=== PATIENT | male | born 2005 | race Caucasian/White ===

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

== ENCOUNTER 2024-04-20 15:42 | Emergency (ER) | payer OTHER, SELFPAY ==
[2024-04-20 15:43] VITALS: BP 118/70; PULSE 57; RESP 14; TEMP 37.2; O2SAT 99
--- NOTE | 2024-04-20 16:00 | DI.RAD_ITS ---
Exam(s) XR HAND RT COMPLETE EXAM: XR HAND RT COMPLETE CLINICAL HISTORY: Right Thumb pain. TECHNIQUE: 2D digital imaging was performed. Three views. COMPARISON: No exams were available for comparison FINDINGS: BONES: No definite acute fracture is present. No bony destructive lesion is seen. JOINTS: Posterior dislocation at the 1st metacarpophalangeal joint. No definite fracture although th ere are 3 associated sesamoid bones. The 5th finger is held in flexion. SOFT TISSUE: Normal. IMPRESSION: Posterior dislocation at the 1st metacarpophalangeal joint. DATA REPOSITORY: RADIATION DOSE DELIVERED:
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
[2024-04-20] MEDS: oxyCODONE 5 mg/Acetaminophen 325 mg TAB 1 TAB PO (16:14)
[2024-04-20] MEDS: Lidocaine 1% Multi-Dose W/EPI 1/100,000 10 ML VIAL IJ (17:20)
--- NOTE | 2024-04-20 17:30 | DI.RAD_ITS ---
Exam(s) XR THUMB RT EXAM: XR THUMB RT CLINICAL HISTORY: Post reduction. TECHNIQUE: 2D digital imaging was performed. Three views. COMPARISON: CR XR HAND RT COMPLETE from 04/20/2024 FINDINGS: BONES: No acute fracture is visible. No bony destructive lesion is seen. JOINTS: Reduction of the previously noted dislocation at the 1st metacarpophalangeal joint. Adjacent sesamoid bones. SOFT TISSUE: Normal. IMPRESSION: Satisfactory reduction of previously noted dislocation at the 1st metacarpophalangeal joint. DATA REPOSITORY: RADIATION DOSE DELIVERED:
== END 2024-04-20 18:28 | disposition home or self-care (01) ==
PROVIDERS: Emergency Provider Registered Nurse Emergency
DX: S63.104A Unspecified dislocation of right thumb, initial encounter (principal); V18.0XXA Pedal cycle driver injured in noncollision transport accident in nontraffic accident, initial encounter
CPT/HCPCS: 26775; 99284; 73130; 73140; 99283; J2004